=== PATIENT | female | born 1970 | race Caucasian/White ===

== ENCOUNTER 2022-09-14 02:14 | Emergency (ER) | payer MEDICARE, OTHER ==
[~2022-09-14] VITALS: Ht 157.5 cm; Wt 54.5 kg
[2022-09-14] MEDS ORDERED: SERT-440 PO (02:30)
[2022-09-14] MEDS ORDERED: LURA40TA2 PO (02:30)
[2022-09-14] MEDS ORDERED: LURA40TA4 PO (02:30)
[2022-09-14] MEDS ORDERED: TOPI100T37 PO (02:30)
[2022-09-14] MEDS ORDERED: GABA-1181 PO (02:30)
[2022-09-14] MEDS ORDERED: BUPR-113 PO (02:30)
[2022-09-14] MEDS ORDERED: BUPR-317 PO (02:30)
[2022-09-14] MEDS ORDERED: DOXY100T2 PO (02:30)
[2022-09-14] MEDS ORDERED: TRAZ-257 PO (02:30)
[2022-09-14] MEDS ORDERED: FOLI-130 PO (02:30)
[2022-09-14 02:56] LABS: BASOPHILS % (AUTO) 0.6 % (0.0-2.0); EOSINOPHILS % (AUTO) 3.2 % (1.0-6.0); HEMATOCRIT 34.3 % (36-46); HEMOGLOBIN 11.6 g/dL (12.0-16.0); LYMPHOCYTES # (AUTO) 1.7 K/uL (1.0-4.8); LYMPHOCYTES % (AUTO) 29.5 % (22.0-44.0); MEAN CORPUSCULAR HEMOGLOBIN 33.2 pg (26.0-34.0); MEAN CORPUSCULAR HGB CONC 33.8 G/dL (31.0-37.0); MEAN CORPUSCULAR VOLUME 98 fL (80-100); MONOCYTES # (AUTO) 0.4 K/uL (0.1-1.0); MONOCYTES % (AUTO) 7.8 % (2.0-9.0); NEUTROPHILS # (AUTO) 3.4 K/uL (1.8-7.7); NEUTROPHILS % (AUTO) 58.9 % (40.0-70.0); PLATELET COUNT (AUTO) 209 K/uL (150-450); RED BLOOD CELL COUNT(AUTO) 3.49 MIL/uL (4.00-5.20)
[2022-09-14] MEDS ORDERED: SODIUM CHLORIDE 0.9% 1,000 ML IV ONE (03:00)
[2022-09-14 03:05] LABS: ANION GAP 8 mmol/L (8-16); CALCIUM, TOTAL 7.5 mg/dL (8.8-10.5); CARBON DIOXIDE 26 mmol/L (22-29); CHLORIDE 106 mmol/L (98-107); CREATININE 0.79 mg/dL (0.60-1.30); GLOMERULAR FILTR. RATE CALC > 60 mL/min (>60); GLUCOSE,RANDOM 103 mg/dL (70-110); POTASSIUM 3.9 mmol/L (3.5-5.1); SODIUM SERUM 140 mmol/L (136-145)
[2022-09-14 03:24] LABS: ALANINE AMINOTRANSFERASE 15 U/L (12-78); ALBUMIN 3.4 g/dL (3.4-5.0); ALKALINE PHOSPHATASE 62 U/L (46-116); ASPARTATE AMINOTRANSFERASE 11 U/L (15-37); CREATINE KINASE, TOTAL ONLY 37 U/L (26-192); TOTAL PROTEIN, SERUM 6.4 g/dL (6.4-8.2)
[2022-09-14 03:26] LABS: ACETAMINOPHEN < 2 mcg/mL (10-30); BILIRUBIN,TOTAL 0.1 mg/dL (0.1-1.0)
[2022-09-14 03:38] LABS: SALICYLATE 2.6 mg/dL (2.8-20.0)
[2022-09-14] MEDS ORDERED: NALOXONE HCL 1 MG/ML 2 ML SYRINGE ONE (04:09)
[2022-09-14 06:57] LABS: AMPHET/METH SCREEN,URINE NEGATIVE (NEGATIVE); BARBITURATE SCREEN, URINE NEGATIVE (NEGATIVE); BENZODIAZEPINES SCREEN,URINE NEGATIVE (NEGATIVE); CANNABINOID SCREEN,URINE NEGATIVE (NEGATIVE); COCAINE SCREEN,URINE NEGATIVE (NEGATIVE); METHADONE SCREEN, URINE NEGATIVE (NEGATIVE); OPIATE SCREEN,URINE NEGATIVE (NEGATIVE); PHENCYCLIDINE SCREEN,URINE NEGATIVE (NEGATIVE)
[2022-09-14 07:43] LABS: APPEARANCE,URINE CLEAR (CLEAR); BILIRUBIN,URINE NEGATIVE (NEGATIVE); GLUCOSE, URINE (UA) NEGATIVE (NEGATIVE); KETONES,URINE NEGATIVE (NEGATIVE); LEUKOCYTE ESTERASE ,URINE NEGATIVE (NEGATIVE); NITRATE,URINE NEGATIVE (NEGATIVE); OCCULT BLOOD,URINE NEGATIVE (NEGATIVE); PH,URINE 5.5 (5.0-8.0); PROTEIN,URINE NEGATIVE (NEGATIVE); SPECIFIC GRAVITIY, URINE 1.004 (1.003-1.030); UROBILINOGEN,URINE <=1.0 mg/dL (<=1.0)
[2022-09-14 08:00] VITALS: BP 102/65
== END 2022-09-14 08:50 | disposition home or self-care (01) ==
LOC: EMS 02:15
DX: T40.601A Poisoning by unspecified narcotics, accidental (unintentional), initial encounter (principal); F10.129 Alcohol abuse with intoxication, unspecified; R41.82 Altered mental status, unspecified; F32.A Depression, unspecified; Z79.899 Other long term (current) drug therapy; Y90.8 Blood alcohol level of 240 mg/100 ml or more; Y92.89 Other specified places as the place of occurrence of the external cause
CPT/HCPCS: 99285; 96360; 70450; 71045; 80053; 82140; 82550; 83880; 84484; 85025; 36415; 93005; 80307; 81003; G0480; J2310; J7030; G0481